=== PATIENT | female | born 1965 | race Caucasian/White ===

== ENCOUNTER 2017-11-03 20:15 | Emergency (ER) | payer SELFPAY ==
[2017-11-03 20:28] VITALS: BP 133/66
--- NOTE | 2017-11-03 21:07 | EDM.PDOC ---
ED HPI GENERAL MEDICAL PROBLEM - General Chief Complaint: Lower Extremity Injury/Pain Stated Complaint: INJURED TOE Time Seen by Provider: 11/03/17 20:42 Source of Information: Reports: Patient History Limitations: Reports: No Limitations - History of Present Illness Onset: Today Onset Date: 11/03/17 Location: Reports: Lower Extremity, Left Quality: Reports: Ache Severity: Mild Improves with: Reports: Rest Worsens with: Reports: Movement Context: Reports: Trauma Associated Symptoms: Reports: No Other Symptoms Left Feet Pain Score (Numeric/FACES): 8 - Related Data Allergies Allergy/AdvReac Type Severity Reaction Status Date / Time latex Allergy Hives Verified 11/03/17 20:23 Home Meds: Home Meds . [No Known Home Meds] 05/06/14 [History] Social & Family History - Tobacco Use Smoking Status *Q: Unknown Ever Smoked Review of Systems - Review of Systems Review Of Systems: ROS reveals no pertinent complaints other than HPI. Constitutional: Reports: No Symptoms Eyes: Reports: No Symptoms Ears: Reports: No Symptoms Nose: Reports: No Symptoms Mouth/Throat: Reports: No Symptoms Respiratory: Reports: No Symptoms Cardiovascular: Reports: No Symptoms GI/Abdominal: Reports: No Symptoms Genitourinary: Reports: No Symptoms Musculoskeletal: Reports: Foot Pain (Left fifth digit) Skin: Reports: No Symptoms Neurological: Reports: No Symptoms Psychiatric: Reports: No Symptoms ED EXAM, GENERAL - Physical Exam Exam: See Below Exam Limited By: No Limitations General Appearance: Alert, WD/WN, No Apparent Distress Throat/Mouth: Normal Inspection, Normal Oropharynx, No Airway Compromise Head: Atraumatic, Normocephalic Respiratory/Chest: No Respiratory Distress Extremities: Other (Left fifth digit lateral displacement abnormality at DIP) Neurological: Alert, Oriented, Normal Cognition Psychiatric: Normal Affect, Normal Mood Skin Exam: Warm, Dry, Intact, Normal Color, No Rash ED TRAUMA EXTREMITY PROCEDURES - Joint Reduction Site: Other (Left foot fifth digit) Sedation: Other (No Sedation) Pre-Procedure NV Status: Normal Post-Procedure NV Status: Normal Technique: Traction/Counter Traction Number of Attempts: 1 Post-Reduction Imaging: Acceptably Reduced Joint Reduction Complications: No Course - Vital Signs Last Recorded V/S: Last Vital Signs Temp 98 F 11/03/17 20:26 Pulse 60 11/03/17 20:26 Resp 20 11/03/17 20:26 BP 133/66 06/02/18 20:26 Pulse Ox 99 11/03/17 20:26 - Orders/Labs/Meds Orders: Active Orders 24 hr Category Date Time Status Foot Comp Min 3V Lt [CR] Stat Exams 11/03/17 20:12 Taken Toes Fifth Digit Lt T4 [CR] Stat Exams 11/03/17 20:52 Ordered - Radiology Interpretation Free Text/Narrative:: Left fifth toe, closed fracture - Re-Assessments/Exams Free Text/Narrative Re-Assessment/Exam: 11/03/17 21:07 Patient afebrile, nontoxic appearing, vital signs stable. Displacement and fracture acceptably reduced without topical anesthesia. Patient tolerated procedure well. Patient placed in an orthopedic shoe and jonathon toe with tape. Patient will follow-up with orthopedic or air traffic coordinator. Departure - Departure Time of Disposition: 21:09 Disposition: Home, Self-Care 01 Condition: Good Clinical Impression: Toe fracture, left Qualifiers: Encounter type: initial encounter Toe: lesser toe Fracture type: closed Phalanx : distal Fracture alignment: displaced Qualified Code(s): S92.532A - Displaced fracture of distal phalanx of left lesser toe(s), initial encounter for closed fracture - Discharge Information Instructions: Toe Fracture, [id number] Referrals: PCP,Not In Area [Primary Care Provider] - Additional Instructions: Follow-up with primary care provider for orthopedic or podiatry referral - My Orders Last 24 Hours: My Active Orders 11/03/17 20:12 Foot Comp Min 3V Lt [CR] Stat 11/03/17 20:52 Toes Fifth Digit Lt T4 [CR] Stat - Assessment/Plan Last 24 Hours: My Active Orders 11/03/17 20:12 Foot Comp Min 3V Lt [CR] Stat 11/03/17 20:52 Toes Fifth Digit Lt T4 [CR] Stat Assessment:: Left fifth toe fracture Plan: Follow-up with PCP for orthopedic referral
== END 2017-11-03 21:12 | disposition home or self-care (01) ==
LOC: KA.ED 20:15
DX: S92.532A Displaced fracture of distal phalanx of left lesser toe(s), initial encounter for closed fracture (principal); X58.XXXA Exposure to other specified factors, initial encounter
CPT/HCPCS: 26770; 28515; 73630-LT; 73660-T4; 99282; 99283